=== PATIENT | female | born 1940 | race Caucasian/White ===

== ENCOUNTER 2020-10-10 16:39 | Inpatient (IN) ==
[2020-10-10] MEDS ORDERED: Sennosides/Docusate Sodium TABLET PO PRN (18:33)
[2020-10-10] MEDS ORDERED: polyethylene glycoL 3350 17 GM POWD.PACK PO PRN (18:33)
[2020-10-11 06:57] LABS: Basophils # 0.1 K/mcL (0.0-0.2); Basophils % 0.9 %; Eosinophils # 0.3 K/mcL (0.0-0.6); Eosinophils % 5.1 %; Immature Granulocytes % 0.2 % (0-4); Lymphocytes # 1.5 K/mcL (0.6-4.6); Lymphocytes % 27.6 %; Mean Corpuscular HGB Conc 32.1 g/dL (31.6-35.5); Mean Corpuscular Hemoglobin 29.2 pg (28.0-33.3); Mean Corpuscular Volume 90.9 fL (83.0-100.0); Mean Platelet Volume 9.6 fL (9.4-12.4); Monocytes # 0.5 K/mcL (0.0-1.3); Monocytes % 8.8 %; Neutrophils # 3.2 K/mcL (1.6-8.9); Platelet Count 299 K/mcL (140-400); Red Blood Count 3.08 M/mcL (3.82-4.97); Red Cell Distribution Width 13.1 % (11.5-14.5); Segmented Neutrophils % 57.4 %; White Blood Count 5.5 K/mcL (4.3-11.1)
[2020-10-11 07:15] LABS: BUN/Creatinine Ratio 19 (6-26); Blood Urea Nitrogen 14 mg/dL (8-23); Calcium 8.2 mg/dL (8.6-10.3); Carbon Dioxide 25 mEq/L (23-29); Chloride 107 mEq/L (98-107); Glucose 89 mg/dL (70-105); Osmolality,Calculated 282 (280-300); Potassium 3.8 mEq/L (3.5-5.1); Sodium 136 mEq/L (136-145); eGFR For African Americans > 60 (> 60); eGFR For Non-African Americans > 60 (> 60)
[2020-10-11] MEDS: Cyanocobalamin (B-12) 1,000 MCG TABLET PO SCH (09:11)
[2020-10-11] MEDS: Furosemide 20 MG TABLET PO SCH (09:12)
[2020-10-11] MEDS: *HR* Rivaroxaban 10 MG TABLET PO SCH (09:12)
[2020-10-11] MEDS: lisinopriL 20 MG TABLET PO SCH (09:12)
[2020-10-12] MEDS: Cyanocobalamin (B-12) 1,000 MCG TABLET PO SCH (08:27)
[2020-10-12] MEDS: lisinopriL 20 MG TABLET PO SCH (08:27)
[2020-10-12] MEDS: *HR* Rivaroxaban 10 MG TABLET PO SCH (08:27)
[2020-10-12] MEDS: Furosemide 20 MG TABLET PO SCH (08:28)
[2020-10-13] MEDS: *HR* Rivaroxaban 10 MG TABLET PO SCH (08:12)
[2020-10-13] MEDS: Cyanocobalamin (B-12) 1,000 MCG TABLET PO SCH (08:12)
[2020-10-13] MEDS: lisinopriL 20 MG TABLET PO SCH (08:12)
[2020-10-13] MEDS: Furosemide 20 MG TABLET PO SCH (08:12)
[2020-10-14] MEDS: Acetaminophen 325 MG TABLET PO PRN (03:47)
[2020-10-14 07:32] LABS: Bilirubin,Urine Negative (Negative); Blood,Urine Moderate (Negative); Clarity,Urine Slightly Cloudy (Clear); Color,Urine Yellow (Yellow); Glucose,Urine (UA) Normal (Normal); Ketones,Urine Negative (Negative); Leukocyte Esterase,Urine Negative (Negative); Nitrite,Urine Negative (Negative); PH,Urine 7.5 pH Units (5.0-8.0); Protein,Urine Negative (Neg-Trace); Urobilinogen,Urine Normal (Normal)
[2020-10-14 07:40] LABS: Amorphous Sediment,Urine Few per hpf (None-Few); Bacteria,Urine Moderate per hpf (None-Few); Mucus,Urine Few per lpf (None-Few); Squamous Epithelial Cell,Urine Few per hpf (None-Few)
[2020-10-14] MEDS: lisinopriL 20 MG TABLET PO SCH (09:24)
[2020-10-14] MEDS: Cyanocobalamin (B-12) 1,000 MCG TABLET PO SCH (09:24)
[2020-10-14] MEDS: Furosemide 20 MG TABLET PO SCH (09:24)
[2020-10-14] MEDS: *HR* Rivaroxaban 10 MG TABLET PO SCH (09:24)
[2020-10-15] MEDS: *HR* Rivaroxaban 10 MG TABLET PO SCH (08:38)
[2020-10-15] MEDS: Cyanocobalamin (B-12) 1,000 MCG TABLET PO SCH (08:39)
[2020-10-15] MEDS: Furosemide 20 MG TABLET PO SCH (08:39)
[2020-10-15] MEDS: lisinopriL 20 MG TABLET PO SCH (08:39)
[2020-10-15] MEDS: Acetaminophen 325 MG TABLET PO PRN (14:42)
[2020-10-16 06:42] LABS: Basophils % 0.8 %; Eosinophils # 0.2 K/mcL (0.0-0.6); Eosinophils % 4.7 %; Hematocrit 35.3 % (35.3-44.9); Hemoglobin 11.1 g/dL (11.5-15.4); Immature Granulocytes % 0.6 % (0-4); Lymphocytes # 1.8 K/mcL (0.6-4.6); Lymphocytes % 37.5 %; Mean Corpuscular HGB Conc 31.4 g/dL (31.6-35.5); Mean Corpuscular Hemoglobin 28.9 pg (28.0-33.3); Mean Corpuscular Volume 91.9 fL (83.0-100.0); Monocytes # 0.5 K/mcL (0.0-1.3); Monocytes % 10.8 %; Neutrophils # 2.2 K/mcL (1.6-8.9); Platelet Count 334 K/mcL (140-400); Red Blood Count 3.84 M/mcL (3.82-4.97); Red Cell Distribution Width 13.8 % (11.5-14.5); Segmented Neutrophils % 45.6 %; White Blood Count 4.9 K/mcL (4.3-11.1)
[2020-10-16 07:04] LABS: Calcium 8.5 mg/dL (8.6-10.3)
[2020-10-16 07:09] LABS: Platelet Estimate Normal (Normal)
[2020-10-16] MEDS: Furosemide 20 MG TABLET PO SCH (09:34)
[2020-10-16] MEDS: *HR* Rivaroxaban 10 MG TABLET PO SCH (09:34)
[2020-10-16] MEDS: Cyanocobalamin (B-12) 1,000 MCG TABLET PO SCH (09:34)
[2020-10-16] MEDS: lisinopriL 20 MG TABLET PO SCH (09:34)
[2020-10-16] MEDS: Acetaminophen 325 MG TABLET PO PRN ×2 (10:12→23:17)
[2020-10-16] MEDS: cephALEXin 250 MG CAPSULE PO SCH ×2 (16:28→22:39)
[2020-10-17] MEDS: lisinopriL 20 MG TABLET PO SCH (08:44)
[2020-10-17] MEDS: Cyanocobalamin (B-12) 1,000 MCG TABLET PO SCH (08:45)
[2020-10-17] MEDS: *HR* Rivaroxaban 10 MG TABLET PO SCH (08:45)
[2020-10-17] MEDS: Furosemide 20 MG TABLET PO SCH (08:45)
[2020-10-17] MEDS: cephALEXin 250 MG CAPSULE PO SCH ×3 (08:45→21:33)
[2020-10-17] MEDS: Acetaminophen 325 MG TABLET PO PRN (10:43)
[2020-10-18] MEDS: lisinopriL 20 MG TABLET PO SCH (08:10)
[2020-10-18] MEDS: cephALEXin 250 MG CAPSULE PO SCH (08:10)
[2020-10-18] MEDS: Furosemide 20 MG TABLET PO SCH (08:10)
[2020-10-18] MEDS: Cyanocobalamin (B-12) 1,000 MCG TABLET PO SCH (08:10)
[2020-10-18] MEDS: *HR* Rivaroxaban 10 MG TABLET PO SCH (08:10)
[2020-10-18] MEDS ORDERED: 0.9 % Sodium Chloride 500 ML IVC ONE (10:28)
[2020-10-18] MEDS ORDERED: 0.9 % Sodium Chloride 500 ML ONE (10:31)
[2020-10-19] MEDS: Cyanocobalamin (B-12) 1,000 MCG TABLET PO SCH (10:01)
[2020-10-19] MEDS: *HR* Rivaroxaban 10 MG TABLET PO SCH (10:04)
[2020-10-19] MEDS: Acetaminophen 325 MG TABLET PO PRN (15:16)
[2020-10-20 07:25] LABS: Eosinophils # 0.1 K/mcL (0.0-0.6); Eosinophils % 2.7 %; Hematocrit 35.7 % (35.3-44.9); Hemoglobin 11.2 g/dL (11.5-15.4); Immature Granulocytes % 0.5 % (0-4); Lymphocytes # 1.8 K/mcL (0.6-4.6); Lymphocytes % 44.9 %; Mean Corpuscular HGB Conc 31.4 g/dL (31.6-35.5); Mean Corpuscular Hemoglobin 28.6 pg (28.0-33.3); Mean Corpuscular Volume 91.3 fL (83.0-100.0); Mean Platelet Volume 8.9 fL (9.4-12.4); Monocytes # 0.4 K/mcL (0.0-1.3); Monocytes % 10.5 %; Neutrophils # 1.7 K/mcL (1.6-8.9); Platelet Count 313 K/mcL (140-400); Red Blood Count 3.91 M/mcL (3.82-4.97); Red Cell Distribution Width 13.5 % (11.5-14.5); Segmented Neutrophils % 40.4 %; White Blood Count 4.1 K/mcL (4.3-11.1)
[2020-10-20 07:47] LABS: BUN/Creatinine Ratio 18 (6-26); Blood Urea Nitrogen 16 mg/dL (8-23); Calcium 8.6 mg/dL (8.6-10.3); Carbon Dioxide 28 mEq/L (23-29); Chloride 102 mEq/L (98-107); Glucose 85 mg/dL (70-105); Osmolality,Calculated 280 (280-300); Potassium 4.3 mEq/L (3.5-5.1); Sodium 135 mEq/L (136-145); eGFR For African Americans > 60 (> 60); eGFR For Non-African Americans > 60 (> 60)
[2020-10-20] MEDS: Furosemide 20 MG TABLET PO SCH (11:03)
[2020-10-20] MEDS: *HR* Rivaroxaban 10 MG TABLET PO SCH (11:03)
[2020-10-20] MEDS: Cyanocobalamin (B-12) 1,000 MCG TABLET PO SCH (11:03)
[2020-10-20] MEDS: Acetaminophen 325 MG TABLET PO PRN (17:38)
[2020-10-21] MEDS: Furosemide 20 MG TABLET PO SCH (10:16)
[2020-10-21] MEDS: *HR* Rivaroxaban 10 MG TABLET PO SCH (10:16)
[2020-10-21] MEDS: Cyanocobalamin (B-12) 1,000 MCG TABLET PO SCH (10:16)
[2020-10-22] MEDS: *HR* Rivaroxaban 10 MG TABLET PO SCH (07:24)
[2020-10-22] MEDS: Furosemide 20 MG TABLET PO SCH (07:25)
[2020-10-22] MEDS: Cyanocobalamin (B-12) 1,000 MCG TABLET PO SCH (07:25)
[2020-10-22] MEDS: Acetaminophen 325 MG TABLET PO PRN (22:08)
[2020-10-23] MEDS: Cyanocobalamin (B-12) 1,000 MCG TABLET PO SCH (10:12)
[2020-10-23] MEDS: *HR* Rivaroxaban 10 MG TABLET PO SCH (10:12)
[2020-10-23] MEDS: Furosemide 20 MG TABLET PO SCH (10:12)
[2020-10-24] MEDS: Furosemide 20 MG TABLET PO SCH (09:58)
[2020-10-24] MEDS: *HR* Rivaroxaban 10 MG TABLET PO SCH (09:58)
[2020-10-24] MEDS: Cyanocobalamin (B-12) 1,000 MCG TABLET PO SCH (09:58)
[2020-10-24] MEDS: Acetaminophen 325 MG TABLET PO PRN (10:04)
[2020-10-25] MEDS: Cyanocobalamin (B-12) 1,000 MCG TABLET PO SCH (08:50)
[2020-10-25] MEDS: Furosemide 20 MG TABLET PO SCH (08:50)
[2020-10-25] MEDS: *HR* Rivaroxaban 10 MG TABLET PO SCH (08:50)
[2020-10-26] MEDS: Acetaminophen 325 MG TABLET PO PRN (03:50)
[2020-10-26] MEDS: *HR* Rivaroxaban 10 MG TABLET PO SCH (07:25)
[2020-10-26] MEDS: Cyanocobalamin (B-12) 1,000 MCG TABLET PO SCH (07:26)
[2020-10-26] MEDS: Furosemide 20 MG TABLET PO SCH (07:27)
[2020-10-27] MEDS: Furosemide 20 MG TABLET PO SCH (09:34)
[2020-10-27] MEDS: *HR* Rivaroxaban 10 MG TABLET PO SCH (09:34)
[2020-10-27] MEDS: Cyanocobalamin (B-12) 1,000 MCG TABLET PO SCH (09:34)
[2020-10-28] MEDS: Furosemide 20 MG TABLET PO SCH (09:20)
[2020-10-28] MEDS: *HR* Rivaroxaban 10 MG TABLET PO SCH (09:20)
[2020-10-28] MEDS: Cyanocobalamin (B-12) 1,000 MCG TABLET PO SCH (09:20)
[2020-10-28] MEDS: Acetaminophen 325 MG TABLET PO PRN (19:24)
[2020-10-29] MEDS: *HR* Rivaroxaban 10 MG TABLET PO SCH (10:20)
[2020-10-29] MEDS: Acetaminophen 325 MG TABLET PO PRN (10:20)
[2020-10-29] MEDS: Cyanocobalamin (B-12) 1,000 MCG TABLET PO SCH (10:20)
[2020-10-29] MEDS: Furosemide 20 MG TABLET PO SCH (10:22)
[2020-10-29 18:48] VITALS: BP 128/76
== END 2020-10-29 20:18 | DRG 945 ==
LOC: INPPIK 21:02
PROVIDERS: ADMIT Family Medicine; ATTEND Family Medicine